=== PATIENT | male | born 1945 | race Caucasian/White ===

== ENCOUNTER → 2016-09-16 | Outpatient (CLI) | payer MEDICARE | END | disposition home or self-care (01) | LOC: PCVCCLINIC 10:51 | PROVIDERS: ATTEND Internal Medicine | DX: Z01.810 Encounter for preprocedural cardiovascular examination (principal); I49.1 Atrial premature depolarization; R94.31 Abnormal electrocardiogram [ECG] [EKG]; I49.9 Cardiac arrhythmia, unspecified; E78.5 Hyperlipidemia, unspecified; Z88.2 Allergy status to sulfonamides | CPT/HCPCS: 80061; G0463 ==

== ENCOUNTER → 2016-09-18 | Outpatient (CLI) | payer MEDICARE ==
--- NOTE | 2016-09-18 13:25 | PCVCIMAG ---
APPROVED REPORT Study performed: 09/18/2016 08:09:17 EXAM: Comprehensive 2D, Doppler, and color-flow Echocardiogram Patient Location: Echo lab Status: routine Other Information Study Quality: Good Indications Murmur, Pre op Shoulder Surgery. 2D Dimensions LVEF(%): 61.66 (>50%) IVSd: 11.12 (7-11mm)LVOT Diam: 24.27 (18-24mm) LVDd: 48.73 mm LVPWs: 25.53 mm PWd: 10.90 (7-11mm)Ascending Ao: 34.92 (22-36mm) LVDs: 32.55 (25-40mm) Left Atrium: 43.41 (27-40mm) Aortic Root: 29.56 mm Freedman's LVEF: 61.66 % Volumes Left Atrial Volume (Systole) Single Plane 4CH: 80.80 mLSingle Plane 2CH: 82.62 mL LA ESV Index: 34.00 mL/m2 Aortic Valve AoV Peak Robert.: 1.75 m/s AO Peak Gr.: 12.29 mmHgLVOT Max P.65 mmHg LVOT Max V: 1.08 m/s BRYANNA Vmax: 2.85 cm2 Mitral Valve E/A Ratio: 1.2 MV Decel. Time: 229.49 ms MV E Max Robert.: 0.79 m/s MV A Robert.: 0.65 m/s IVRT: 117.65 ms TDI E/Lateral E': 0.06E/Medial E': 0.10 Medial E' Robert.: 8.00 m/s Lateral E' Robert.: 13.00 m/s Pulmonary Valve PV Peak Gr.: 3.84 mmHg Pulmonary Vein P Vein S: 0.63 m/sP Vein A: 0.30 m/s P Vein D: 0.34 m/sP Vein A Dur.: 86.5 msec P Vein S/D Ratio: 1.85 Tricuspid Valve TR Peak Robert.: 2.89 m/s TR Peak Gr.: 33.34 mmHg Left Ventricle The left ventricle is normal size. There is normal LV segmental wall motion. There is normal left ventricular wall thickness. Left ventricular systolic function is normal. The left ventricular ejection fraction is within the normal range. LVEF is 55-60%. The left ventricular diastolic function is normal. Right Ventricle The right ventricle is normal size. The right ventricular systolic function is normal. Atria The left atrium size is normal. The right atrium size is normal. Aortic Valve The aortic valve is normal in structure. No aortic regurgitation is present. There is no aortic valvular stenosis. Mitral Valve The mitral valve is normal in structure. Moderate mitral regurgitation. No evidence of mitral valve stenosis. Tricuspid Valve The tricuspid valve is normal in structure. Trace tricuspid regurgitation. Pulmonary artery pressure is 41mmhg. Pulmonic Valve The pulmonary valve is normal in structure. Trace pulmonic regurgitation. Great Vessels The aortic root is normal in size. IVC is normal in size and collapses with >50% inspiration Pericardium There is no pericardial effusion. <Conclusion> The left ventricle is normal size. LVEF is 55-60%. The aortic valve is normal in structure. The mitral valve is normal in structure. Moderate mitral regurgitation. The tricuspid valve is normal in structure. Trace tricuspid regurgitation. Pulmonary artery pressure is 41mmhg. The pulmonary valve is normal in structure. Trace pulmonic regurgitation.
== END | disposition home or self-care (01) ==
LOC: PCVCIMAG 07:53
PROVIDERS: ATTEND Internal Medicine
DX: Z01.810 Encounter for preprocedural cardiovascular examination (principal); I08.1 Rheumatic disorders of both mitral and tricuspid valves; R94.31 Abnormal electrocardiogram [ECG] [EKG]; I10 Essential (primary) hypertension; I49.9 Cardiac arrhythmia, unspecified; R01.1 Cardiac murmur, unspecified
CPT/HCPCS: 93306

== ENCOUNTER → 2017-01-27 | Outpatient (CLI) | payer MEDICARE ==
--- NOTE | 2017-01-27 16:31 | PCVCIMAG ---
APPROVED REPORT Exam: Nuclear Stress Test Indication: Abnormal EKG, Pre-Operative CV evaluation Patient Location: Out-Patient Stress Nurse: Maryjane Roa RN SC Tech:Joshua DiazRUSS Ht: 5 ft 9 in Wt: 190 lbs BSA: 2.02 m2 HR: 57 bpm BP: 160/79 mmHg BMI: 28.0 Rhythm: Sinus Bradycardia, ST ABNORMALITY Medical History Medical History: AGE Medications: Amlodipine-Benazepril, ASA, Atorvastatin Allergies: SULFA Pretest Chest Pain Characteristics: No chest pain Exercise History: Physically active NM EXAM: Myocardial Perfusion REST/STRESS Imaging Protocol: Rest Tc-99m/Stress Tc-99m 1 day Resting Data Rest SPECT myocardial perfusion imaging was performed in supine position 45 minutes following the intravenous injection of 10.4 mCi of Tc-99m Sestamibi. Time of rest injection: 0845 Date: 01/27/2017 Administration Route: IV Administration Site: Left AC Exercise Stress At peak stress, the patient was injected intravenously with 32.0mCi of Tc-99m Sestamibi. Time of stress injection: 1020 Date: 01/27/2017 Administration Route: IV Administration Site: Left AC Gated Stress SPECT was performed 45 minutes after stress injection. The images were gated to evaluate regional wall motion and calculate left ventricular ejection fraction. Study Data Post stress, the left ventricular ejection was 61%.. SSS: 3 SRS: 3 SDS: 2 TID = 1.04. Perfusion There is a medium area of moderately reduced uptake in the entire segment of the inferior wall which is seen on the stress images as well as the resting images. This area thickens and moves normally and is most consistent with attenuation artifact. Wall Motion Normal left ventricular wall motion. Nuclear Conclusion 1. LOW RISK STUDY Interpreted by: Channing Miranda MD Electronically Approved: 01/27/2017 16:29:26 Stress Test Details Stress Test: Exercise stress testing was performed using a Nicholas protocol. Held Stage at II. HR Resting HR: 57 bpmMax Heart Rate (APMHR): 150 bpm Max HR Achieved: 134 bpmTarget HR (85% APMHR): 127 bpm % of APMHR: 89 Recovery HR: 70 bpm BP Resting BP: 160/79 mmHg Max BP: 162/78 mmHg ECG Resting ECG: Sinus Bradycardia, nonspecific ST-T abnormalities Stress ECG: Sinus Tachycardia, nonspecific ST-T abnormalities Maximum ST Deviation: 1.65 mm Recovery ECG: Sinus Rhythm, nonspecific ST-T abnormalities Clinical Reason for Termination: Dyspnea Stress Symptoms: Dyspnea Exercise duration: 07 min 01 sec Exercise capacity: 7.0 METs Symptoms resolved during recovery. Stress ECG Conclusion 1. SUBJECTIVELY NEGATIVE FOR ISCHEMIA 2. BASELINE ST ABNORMALITIES RENDERS SHIFTS NOT INTERPRETABLE 3. DECREASED FUNCTIONAL CAPACITY <Conclusion> 1. SUBJECTIVELY NEGATIVE FOR ISCHEMIA 2. BASELINE ST ABNORMALITIES RENDERS SHIFTS NOT INTERPRETABLE 3. DECREASED FUNCTIONAL CAPACITY
== END | disposition home or self-care (01) ==
LOC: PCVCIMAG 08:19
PROVIDERS: ATTEND Internal Medicine
DX: Z01.818 Encounter for other preprocedural examination (principal); R01.1 Cardiac murmur, unspecified; R94.31 Abnormal electrocardiogram [ECG] [EKG]; R00.1 Bradycardia, unspecified
CPT/HCPCS: 78452; 93017; A9500